=== PATIENT | male | born 1980 | race Caucasian/White ===

== ENCOUNTER 2020-01-27 18:48 | Emergency (ER) | payer OTHER ==
--- NOTE | 2020-01-27 19:11 | PDOC ---
History of Present Illness - General Chief Complaint: Cold Symptoms Stated Complaint: COVID TEST Time Seen by Provider: 01/27/20 19:08 - History of Present Illness Initial Comments: 01/27/20 19:09 39-year-old male requesting COVID swab for upcoming travel Past History - Medical History Allergies/Adverse Reactions: Allergies Allergy/AdvReac Type Severity Reaction Status Date / Time No Known Allergies Allergy Verified 01/18/12 16:53 Anemia: No HTN: No - Surgical History Abdominal Surgery: Yes (inguinal hernia.) - Psycho-Social/Smoking History Smoking Status: No Smoking History: Current every day smoker Number of Cigarettes Smoked Daily: 3 Review of Systems - Review of Systems Constitutional: No: Fever Respiratory: No: Cough *Physical Exam - Physical Exam General Appearance: Yes: Appropriately Dressed. No: Apparent Distress HEENT: positive: Symmetrical Neck: positive: Supple Respiratory/Chest: positive: Normal Breath Sounds. negative: Respiratory Distress Musculoskeletal: positive: Normal Inspection Extremity: positive: Normal Inspection Integumentary: positive: Normal Color Neurologic: positive: Fully Oriented, Alert Discharge - Discharge Information Problems reviewed: Yes Clinical Impression/Diagnosis: COVID-19 ruled out by laboratory testing Condition: Stable Disposition: HOME - Admission No - Follow up/Referral - Patient Discharge Instructions - Post Discharge Activity
[2020-01-27 19:12] VITALS: BP 124/76; PULSE 63; TEMP 98.4; BMI 24.7
== END 2020-01-27 19:12 | disposition home or self-care (01) ==
LOC: JER 18:48 → JERFT 18:48
DX: Z03.818 Encounter for observation for suspected exposure to other biological agents ruled out (principal)
CPT/HCPCS: 99283-25; U0003

== ENCOUNTER 2020-06-05 13:07 | Emergency (ER) | payer OTHER ==
[2020-06-05 13:23] VITALS: BP 155/82; PULSE 75; TEMP 98.1; BMI 23.6
[2020-06-05] MEDS ORDERED: ceFAZolin SODIUM 1 GM VIAL IM ONE (14:00)
[2020-06-05] MEDS ORDERED: CEFAZOLIN 1 GM/D5W 1 GM/50 ML BAG ONE (14:01)
== END 2020-06-05 14:24 | disposition home or self-care (01) ==
LOC: JER 13:07 → JERFT 13:07
PROC: 0HQGXZZ Repair Left Hand Skin, External Approach (ICD-10-PCS; principal; 2020-06-05)
PROC: 3E02329 Introduction of Other Anti-infective into Muscle, Percutaneous Approach (ICD-10-PCS; 2020-06-05)
DX: S61.012A Laceration without foreign body of left thumb without damage to nail, initial encounter (principal)
CPT/HCPCS: 99284-25

== ENCOUNTER 2023-07-22 02:33 | Emergency (ER) | payer OTHER ==
[2023-07-22 02:37] VITALS: BP 130/77; PULSE 86; RESP 20; TEMP 98.6; BMI 29.9
== END 2023-07-22 03:32 | disposition home or self-care (01) ==
LOC: JER 02:33
DX: R05.9 Cough, unspecified (principal); Z20.822 Contact with and (suspected) exposure to COVID-19
CPT/HCPCS: 0241U-QW; 99283-25